=== PATIENT | male | born 1960 | race Caucasian/White ===

== ENCOUNTER 2016-11-28 22:55 | Emergency (ER) | payer OTHER ==
[~2016-11-28] VITALS: Ht 165.1 cm; Wt 72.6 kg
[2016-11-28 22:55] VITALS: BP 124/73
--- NOTE | 2016-11-28 23:04 | ED.ADGEN ---
Past History Past Medical History: Kidney Stones Adult General Chief Complaint Chief Complaint " I think I having my 3rd kidney stone here on Lt... the pain is just like the two prior stones.. it stabbing .. radiates into my groin and Lt testicle... .. It hurts so bad I vomit...." HPI HPI Patient is a 56 year old male who presents with above hx and complaints of renal colic. Pt. rates pain 10/10 at times. Nausea and vomiting with peak pain episodes. Pt. has had hematuria. No history of immunosuppression. No history of trauma. Patient up-to-date with maintenance examination. Patient follows at [facility]. Pt. 's 2 prior kidney stones passed without surgical assistance. Review of Systems Review of Systems Constitutional: Denies fever or chills [] Eyes: Denies change in visual acuity, redness, or eye pain [] HENT: Denies nasal congestion or sore throat [] Respiratory: Denies cough or shortness of breath [] Cardiovascular: No additional information not addressed in HPI [] GI: Denies abdominal pain, bloody stools or diarrhea [] complaints of nausea and vomiting : Denies dysuria. History of hematuria [] Musculoskeletal: Pt. complains of left flank back pain Integument: Denies rash or skin lesions [] Neurologic: Denies headache, focal weakness or sensory changes [] Endocrine: Denies polyuria or polydipsia [] Family History Family History Noncontributory Current Medications Current Medications Current Medications Medications (Trade) Dose Ordered Sig/Vanesa Start Time Stop Time Status Last Admin Dose Admin Famotidine (Pepcid) 20 mg 1X ONCE 11/28/16 23:45 11/28/16 23:46 DC 11/28/16 23:45 20 MG Ketorolac Tromethamine (Toradol) 30 mg 1X ONCE 11/28/16 23:45 11/28/16 23:46 DC 11/28/16 23:45 30 MG Ketorolac Tromethamine 30 mg 30 mg STK-MED ONCE 11/28/16 23:36 11/28/16 23:37 DC Lactated Ringer's (Iv Lactated Ringers) 1,000 ml @ As Directed STK-MED ONCE 11/28/16 23:37 11/28/16 23:38 DC Levofloxacin (Levaquin) 500 mg STK-MED ONCE 11/28/16 23:36 11/28/16 23:37 DC Morphine Sulfate (Morphine 10mg Syringe) 10 mg STK-MED ONCE 11/28/16 23:36 11/28/16 23:37 DC Ondansetron HCl (Zofran) 4 mg STK-MED ONCE 11/28/16 23:37 11/28/16 23:38 DC Allergies Allergies Allergies Coded Allergies Type Severity Reaction Last Updated Verified No Known Drug Allergies 11/28/16 No Physical Exam Physical Exam Constitutional:in acute distress, non-toxic appearance. [] HENT: Normocephalic, atraumatic, bilateral external ears normal, oropharynx moist, no oral exudates, nose normal. [] Eyes: PERRLA, EOMI, conjunctiva normal, no discharge. [] Neck: Normal range of motion, no tenderness, supple, no stridor. [] Cardiovascular:Heart rate regular rhythm, no murmur [] Lungs & Thorax: Bilateral breath sounds clear to auscultation [] Abdomen: Bowel sounds decreased,, soft, no tenderness, no masses, no pulsatile masses. Testicles nontender. Circumcised male. Patient declines rectal exam this time. No rebound. Skin: Warm, dry, no erythema, no rash. [] Back: No tenderness, left CVA tenderness. [] Extremities: No tenderness, no cyanosis, no clubbing, ROM intact, no edema. No psoas or obturator sign. Neurologic: Alert and oriented X 3, normal motor function, normal sensory function, no focal deficits noted. [] Psychologic: Affect anxious, judgement normal, mood normal. [] Current Patient Data Vital Signs Vital Signs Date Time Temp Pulse Resp B/P Pulse Ox O2 Delivery O2 Flow Rate FiO2 11/28/16 23:45 16 95 Room Air Lab Results Laboratory Tests Test 11/28/16 23:05 11/28/16 23:10 Urine Collection Type Unknown Urine Color Yellow Urine Clarity Clear Urine pH 5.0 Urine Specific Alanson 1.025 Urine Protein Neg (NEG-TRACE) Urine Glucose (UA) Negmg/dL (NEG) Urine Ketones (Stick) Negmg/dL (NEG) Urine Blood Large (NEG) Urine Nitrite Neg (NEG) Urine Bilirubin Neg (NEG) Urine Urobilinogen Dipstick 0.2mg/dL (0.2 mg/dL) Urine Leukocyte Esterase Neg (NEG) Urine RBC 11-20/HPF (0-2) Urine WBC Occ/HPF (0-4) Urine Squamous Epithelial Cells None/LPF Urine Bacteria Few/HPF (0-FEW) Urine Opiates Screen Neg (NEG) Urine Methadone Screen Neg (NEG) Urine Barbiturates Neg (NEG) Urine Phencyclidine Screen Neg (NEG) Urine Amphetamine/Methamphetamine Neg (NEG) Urine Benzodiazepines Screen Neg (NEG) Urine Cocaine Screen Neg (NEG) Urine Cannabinoids Screen Neg (NEG) Urine Ethyl Alcohol Neg (NEG) White Blood Count 8.7x10^3/uL (4.0-11.0) Red Blood Count 5.19x10^6/uL (4.30-5.70) Hemoglobin 14.9g/dL (13.0-17.5) Hematocrit 44.6% (39.0-53.0) Mean Corpuscular Volume 86fL (79-100) Mean Corpuscular Hemoglobin 29pg (25-35) Mean Corpuscular Hemoglobin Concent 33g/dL (31-37) Red Cell Distribution Width 13.0% (11.5-14.5) Platelet Count 207x10^3/uL (140-400) Neutrophils (%) (Auto) 75% (31-73) H Lymphocytes (%) (Auto) 15% (24-48) L Monocytes (%) (Auto) 7% (0-9) Eosinophils (%) (Auto) 2% (0-3) Basophils (%) (Auto) 1% (0-3) Neutrophils # (Auto) 6.5x10^3uL (1.8-7.7) Lymphocytes # (Auto) 1.3x10^3/uL (1.0-4.8) Monocytes # (Auto) 0.6x10^3/uL (0.0-1.1) Eosinophils # (Auto) 0.1x10^3/uL (0.0-0.7) Basophils # (Auto) 0.0x10^3/uL (0.0-0.2) Prothrombin Time 9.9SEC (9.4-11.4) Prothrombin Time INR 1.0 (0.9-1.1) PTT 21SEC (23-33) L Sodium Level 142mmol/L (136-145) Potassium Level 4.2mmol/L (3.5-5.1) Chloride Level 102mmol/L (98-107) Carbon Dioxide Level 27mmol/L (21-32) Anion Gap 13 (6-14) Blood Urea Nitrogen 21mg/dL (8-26) Creatinine 1.3mg/dL (0.7-1.3) Estimated GFR (Cockcroft-Gault) 57.5 Glucose Level 137mg/dL (70-99) H Calcium Level 9.0mg/dL (8.5-10.1) Total Bilirubin 0.5mg/dL (0.2-1.0) Direct Bilirubin 0.1mg/dL (0.0-0.2) Aspartate Amino Transferase (AST) 12U/L (15-37) L Alanine Aminotransferase (ALT) 17U/L (16-63) Alkaline Phosphatase 60U/L (46-116) Total Protein 7.4g/dL (6.4-8.2) Albumin 4.2g/dL (3.4-5.0) Lipase 219U/L (73-393) EKG EKG [] Radiology/Procedures Radiology/Procedures My mild to moderate left hydronephrosis and has a distal 4 mm UVJ Stone . My interpretation and film shows nonspecific bowel gas pattern. CT of abdomen shows [] Course & Med Decision Making Course & Med Decision Making Pertinent Labs and Imaging studies reviewed. (See chart for details) She stay on a clear fluid diet only. Patient push fluids. Patient take Zofran 8 mg 4 times a day as needed for nausea and vomiting. Patient take Tylenol or IbuProfen pain. Patient take Vicoprofen for marked discomfort. Patient take Zofran 8 mg up 4 times a day for nausea and vomiting. Patient return if any concerns. Patient follow-up primary care and urology. [] Final Impression Final Impression 1. Lt. Renal Colic[] 2. Lt. distal 4 mm stone- with hydronephrosis Problems: Dragon Disclaimer Dragon Disclaimer This electronic medical record was generated, in whole or in part, using a voice recognition dictation system. MATT CHAND MD Nov 28, 2016 23:04
[2016-11-28] MEDS ORDERED: IV RINGERS SOLUTION,LACTATED 1,000 ML IV SCH (23:30)
[2016-11-28] MEDS ORDERED: MORPHINE SULFATE 10 MG/ML SYRINGE. ONE (23:36)
[2016-11-28] MEDS ORDERED: KETOROLAC 30 MG/ML VIAL. ONE (23:36)
[2016-11-28] MEDS ORDERED: LEVOFLOXACIN 500 MG TABLET ONE (23:36)
[2016-11-28] MEDS ORDERED: IV RINGERS SOLUTION,LACTATED 1,000 ML IV ONE (23:37)
[2016-11-28] MEDS ORDERED: ONDANSETRON PF 4 MG/2 ML VIAL. ONE (23:37)
[2016-11-28 23:43] LABS: BASO % 1 % (0-3); EOS # 0.1 x10^3/uL (0.0-0.7); EOS % 2 % (0-3); HEMATOCRIT 44.6 % (39.0-53.0); HEMOGLOBIN 14.9 g/dL (13.0-17.5); LYMPH # 1.3 x10^3/uL (1.0-4.8); LYMPH % 15 % (24-48); MEAN CORPUSCULAR HEMOGLOBIN 29 pg (25-35); MEAN CORPUSCULAR HGB CONC 33 g/dL (31-37); MEAN CORPUSCULAR VOLUME 86 fL (79-100); MONO # 0.6 x10^3/uL (0.0-1.1); MONO % 7 % (0-9); NEUT # 6.5 x10^3uL (1.8-7.7); NEUT % 75 % (31-73); PLATELET COUNT 207 x10^3/uL (140-400); RED BLOOD COUNT 5.19 x10^6/uL (4.30-5.70); WHITE BLOOD COUNT 8.7 x10^3/uL (4.0-11.0)
[2016-11-28] MEDS ORDERED: KETOROLAC 30 MG/ML VIAL. IV ONE (23:45)
[2016-11-28] MEDS ORDERED: FAMOTIDINE 20 MG/2 ML VIAL IVP ONE (23:45)
[2016-11-28] MEDS ORDERED: MORPHINE SULFATE 10 MG/ML SYRINGE. SQ ONE (23:45)
[2016-11-28] MEDS ORDERED: LEVOFLOXACIN 500 MG TABLET PO ONE (23:45)
[2016-11-28] MEDS ORDERED: ONDANSETRON PF 4 MG/2 ML VIAL. IV ONE (23:45)
--- NOTE | 2016-11-28 23:45 | RAD ---
PROCEDURE CT abdomen and pelvis without intravenous contrast. HISTORY Severe left-sided flank pain with nausea tonight. TECHNIQUE Helical CT of the abdomen and pelvis was performed without intravenous or oral contrast. Exposure: One or more of the following individualized dose reduction techniques were utilized for this examination: 1. Automated exposure control. 2. Adjustment of the mA and/or kV according to patient size. 3. Use of iterative reconstruction technique. COMPARISON None. FINDINGS Evaluation of solid organs is limited by lack of intravenous contrast. Evaluation of enteric structures may be limited by lack of oral contrast. Liver, spleen, pancreas, gallbladder, and bilateral adrenal glands are unremarkable. No bowel obstruction or inflammation is seen. Appendix is without inflammation. Small bilateral fat containing inguinal hernias are present. There is mild-moderate left hydroureteronephrosis secondary to a 4 millimeter left UVJ stone. No other urinary stone is identified. IMPRESSION Mild-moderate left hydroureteronephrosis secondary to a 4 millimeter left UVJ stone. Electronically signed by: Philip Summers MD (Nov 28, 2016 23:44:01)
[2016-11-28 23:46] LABS: BILIRUBIN,URINE NEG (NEG); CLARITY,URINE CLEAR; GLUCOSE,URINE NEG (NEG); NITRITE,URINE NEG (NEG); UROBILINOGEN,URINE 0.2 mg/dL (0.2 mg/dL)
[2016-11-28 23:47] LABS: BACTERIA,URINE FEW /HPF (0-FEW); COLOR,URINE YELLOW; WBC,URINE OCC /HPF (0-4)
[2016-11-28 23:53] LABS: BARBITURATES NEG (NEG); BENZODIAZEPINES NEG (NEG); CANNABINOIDS NEG (NEG); COCAINE NEG (NEG); METHADONE NEG (NEG); OPIATES NEG (NEG); PHENCYCLIDINE NEG (NEG)
[2016-11-28 23:53] LABS: ALBUMIN 4.2 g/dL (3.4-5.0); CREATININE 1.3 mg/dL (0.7-1.3); DIRECT BILIRUBIN 0.1 mg/dL (0.0-0.2); GFR 57.5; POTASSIUM 4.2 mmol/L (3.5-5.1); TOTAL BILIRUBIN 0.5 mg/dL (0.2-1.0); TOTAL PROTEIN 7.4 g/dL (6.4-8.2)
[2016-11-28 23:55] LABS: AMPHETAMINE/METHAMPHETAMINE NEG (NEG)
[2016-11-29] MEDS ORDERED: ONDA8TAB12 PO (00:01)
[2016-11-29] MEDS ORDERED: HYDR-79 PO (00:01)
--- NOTE | 2016-11-29 07:30 | RAD ---
Indication: Severe left flank pain with nausea. History of renal stones. Technique: Abdominal series with PA chest radiograph was obtained. No comparison is available. Findings: The lungs are clear. The heart is not enlarged. There is no dilated bowel loop. There is no free air. There is no air-fluid level. There are calcified phleboliths in the pelvis and there are minimal degenerative changes in the spine. Impression: Nonobstructive bowel gas pattern.
== END 2016-11-29 01:30 | disposition home or self-care (01) ==
LOC: ER 22:55
DX: N13.2 Hydronephrosis with renal and ureteral calculous obstruction (principal); Z87.442 Personal history of urinary calculi
CPT/HCPCS: 36415; 74022; 74176; 80048; 80076; 80305; 81001; 83690; 85027; 85610; 85730; 96361; 96372; 96374; 96375; 99285; J1885; J2270; J2405; J7120; S0028; G0481